=== PATIENT | male | born 1970 | race Caucasian/White ===

== ENCOUNTER 2018-01-29 13:02 | Emergency (ER) | payer OTHER ==
[~2018-01-29] VITALS: Ht 188 cm; Wt 114.3 kg
--- OUTSIDE RECORDS SUMMARY | 2018-01-29 13:05 | XMS REPORT | Clinical Summary ---
Author Author GINA [facility] Organization [facility] Address Unknown Phone Unavailable Care Team Providers Care Die Baker Name Role Phone Sharpless PCP Allergies No Known Allergies Medications End Date Status Medication Sig Dispensed Refills Start Date 08/12/2017 Discontinued tamsulosin (FLOMAX) 0.4 Take 0.4 mg 0 mg Cp24 24 hr capsule by mouth daily. 08/12/2017 Discontinued acetaminophen-codeine Take 1 tablet 30 tablet 0 (TYLENOL #3) 300-30 mg by mouth 8 per tablet every 4 (four) hours as needed for Pain for up to 10 days. Max Daily Amount: 6 tablets 08/12/2017 Discontinued docusate sodium (COLACE) Take 1 10 capsule 0 100 MG capsule capsule (100 8 mg total) by mouth 2 (two) times daily for 10 days. 08/12/2017 Discontinued ciprofloxacin HCl (CIPRO) Take 1 tablet 8 tablet 0 500 MG tablet (500 mg 8 total) by mouth 2 (two) times daily for 4 days. 08/16/2017 ciprofloxacin HCl (CIPRO) Take 1 tablet 8 tablet 0 500 MG tablet (500 mg 8 total) by mouth 2 (two) times daily for 4 days. 08/22/2017 acetaminophen-codeine Take 1 tablet 30 tablet 0 (TYLENOL #3) 300-30 mg by mouth 8 per tablet every 4 (four) hours as needed for Pain for up to 10 days. Max Daily Amount: 6 tablets 08/22/2017 docusate sodium (COLACE) Take 1 10 capsule 0 100 MG capsule capsule (100 8 mg total) by mouth 2 (two) times daily for 10 days. Active Problems Problem Noted Date S/P prostatectomy 08/12/2017 Prostate cancer 08/10/2017 Encounters Care Team Description Date Type Specialty Link, Grzegorz Fan MD ROBOTIC LAPAROSCOPY,PROSTATECTOMY W/ PELVIC LYMPH NODE DISSECTION 08/10/2017 Surgery Link, Grzegorz Fan MD 08/10/2017 [facility] General Internal Medicine - Encounter 08/12/2017 Link, Grzegorz Fan MD 07/25/2017 Hospital Cardiology Encounter Link, Grzegorz Fan MD 07/25/2017 Hospital Encounter Link, Grzegorz Fan MD 07/25/2017 Hospital Pre-Admission Testing Encounter Link, Grzegorz Fan MD 07/25/2017 Hospital Pre-Admission Testing Encounter Opal Lopes MD 07/25/2017 Anesthesia Event Link, Grzegorz Fan MD 07/25/2017 Outside Orders Autumn Ryder 07/19/2017 Orders Only Pre-Admission Testing after 01/28/2017 Social History Date Tobacco Use Types Packs/Day Years Used Never Smoker Smokeless Tobacco: Snuff Current User Tobacco Cessation: Ready to Quit: Yes; Counseling Given: Yes Comments: 1/2 can /day Alcohol Use Drinks/Week oz/Week Comments Yes 2 Cans of 1.2 beer Sex Assigned at Date Recorded Not on file Industry Job Start Date Occupation Not on file Not on file Not on file Travel End Travel History Travel Start No recent travel history available. Last Filed Vital Signs Time Taken Vital Sign Reading 08/12/2017 3:43 PM CDT Blood Pressure 171/93 08/12/2017 3:43 PM CDT Pulse 101 08/12/2017 3:43 PM CDT Temperature 37.8 C (100.1 F) 08/12/2017 3:43 PM CDT Respiratory Rate 20 08/12/2017 3:43 PM CDT Oxygen Saturation 96% - Inhaled Oxygen - Concentration 08/10/2017 5:24 AM CDT Weight 115.6 kg (254 lb 14.4 oz) 08/10/2017 5:24 AM CDT Height 188 cm (6' 2") 08/10/2017 5:24 AM CDT Body Mass Index 32.73 Plan of Treatment Not on file Procedures Comments Procedure Name Priority Date/Time Associated Diagnosis RHYTHM STRIP - SCAN 08/14/2017 2:11 PM CDT HEMOGLOBIN AND HEMATOCRIT Routine 08/12/2017 12:49 PM CDT HEMOGLOBIN AND HEMATOCRIT Routine 08/12/2017 4:53 AM CDT BASIC METABOLIC PANEL (7) Routine 08/12/2017 4:53 AM CDT HEMOGLOBIN AND HEMATOCRIT Routine 08/11/2017 5:25 AM CDT BASIC METABOLIC PANEL (7) Routine 08/11/2017 5:25 AM CDT HEMOGLOBIN AND HEMATOCRIT Routine 08/10/2017 12:49 PM CDT BASIC METABOLIC PANEL (7) Routine 08/10/2017 12:49 PM CDT TISSUE EXAM AP Routine 08/10/2017 11:56 AM CDT PROCEDURE W/ DAVINCI 08/10/2017 Prostate cancer (HCC) 7:30 AM CDT Special Needs (DAVINCI - XI NOT REQUESTED) ROBOTIC 08/10/2017 Prostate cancer (HCC) LAPAROSCOPY,PROSTATECTOMY 7:30 AM CDT W/ PELVIC LYMPH NODE DISSECTION Special Needs (DAVINCI - XI NOT REQUESTED) TRANSFUSION SERVICE 07/26/2017 REPORT - SCAN 5:44 PM CDT XR CHEST 2 VIEWS Routine 07/25/2017 11:14 AM CDT ECG 12-LEAD Routine 07/25/2017 10:55 AM CDT Procedure Note - Interface, External Ris In - 07/25/2017 11:05 AM CDT Ventricula r Rate 72 BPM Atrial Rate 72 BPM P-R Interval 134 ms QRS Duration 98 ms Q-T Interval 386 ms QTC Calculatio n(Bazett) 422 ms P Big Indian 37 degrees R Big Indian 6 degrees T Big Indian 120 degrees Normal sinus rhythm Possible Left atrial enlargemen t Left ventricula r hypertroph y T wave abnormalit y, consider lateral ischemia Abnormal ECG No previous ECGs available ECG 12-LEAD Routine 07/25/2017 10:55 AM CDT APTT Routine 07/25/2017 10:51 AM CDT PROTHROMBIN TIME/INR Routine 07/25/2017 10:51 AM CDT CBC W/PLT COUNT & AUTO Routine 07/25/2017 DIFFERENTIAL 10:50 AM CDT TYPE AND SCREEN, Routine 07/25/2017 AUTOMATED 10:50 AM CDT URINALYSIS W/ MICROSCOPIC Routine 07/25/2017 10:50 AM CDT CBC W/PLT COUNT & AUTO Routine 07/25/2017 DIFFERENTIAL 10:50 AM CDT BASIC METABOLIC PANEL (7) Routine 07/25/2017 10:50 AM CDT URINE CULTURE Routine 07/25/2017 10:50 AM CDT after 01/28/2017 Results * RHYTHM STRIP - SCAN (08/14/2017 2:11 PM CDT) Narrative Performed At * Hemoglobin and hematocrit (08/12/2017 12:49 PM CDT) Only the most recent of 4 results within the time period is included. Hemoglobin 10.9 (L) 13.7 - 17.5 GM/DL [facility] Hematocrit 32.1 (L) 40.1 - 51.0 % [facility] Specimen Blood - Arm, Right Performing Organization Address City/State/Zipcode Phone Number [facility] [address] [place] [address] MEDICAL [facility]ENTER * Basic Metabolic Panel - In AM (08/12/2017 4:53 AM CDT) Only the most recent of 4 results within the time period is included. Sodium 139 136 - 145 meq/L [facility] Potassium 3.2 (L) 3.5 - 5.1 meq/L [facility] Chloride 103 98 - 107 meq/L [facility] CO2 26 22 - 29 meq/L [facility] BUN 10 7 - 21 mg/dL [facility] Creatinine 1.63 (H) 0.57 - 1.25 mg/dL [facility] Glucose 107 (H) 70 - 105 mg/dL [facility] Calcium 8.6 8.4 - 10.2 mg/dL [facility] EGFR 46Comment: ESTIMATED GFR IS mL/min/1.73 sq m [facility] NOT ACCURATE CREATININE [facility] CLEARANCE IN PREDICTING GLOMERULAR FILTRATION RATE. ESTIMATED GFR IS NOT APPLICABLE FOR DIALYSIS PATIENTS. Specimen Blood - Arm, Right Performing Organization Address City/State/Zipcode Phone Number [facility] [address], [place] [phone] MEDICAL [facility]ENTER * Tissue Exam (08/10/2017 11:56 AM CDT) Case Report Surgical Pathology [facility] Report [facility] Case: [id number] Authorizing Provider:Grzegorz Cabezas MD Collected: 08/10/2017 1158 Ordering Location: [facility] PERIOPERATIVE Received: 08/10/2017 1221 SERVICES Pathologist: Jay Moreno MD Specimens: A) - Prostate, Radical Prostatectomy B) - Lymph Node, Bilateral Pelvic Lymph Node DIAGNOSIS A. PROSTATE, RADICAL ROBOTIC [facility] ASSISTED PROSTATECTOMY: [facility] - ADENOCARCINOMA, CATHLEEN 3+4=7, CONFINED TO PROSTATE, SURGICAL MARGINS POSITIVE SEMINAL VESICLES, RADICAL ROBOTIC ASSISTED PROSTATECTOMY: - NEGATIVE FOR MALIGNANCY B. LYMPH NODES, BILATERAL PELVIC, DISSECTION: - FIFTEEN BENIGN LYMPH NODES (0/15) Signing Pathologist Direct Phone Line: [phone] COMMENT Sections show bilateral [facility] peripheral and transition zone [facility] cancers. The peripheral zone cancer on the left side is the highest grade. The transition zone cancers are low grade (Cathleen 2+3=5) and the right peripheral zone cancer is Cathleen 3+3=6. The tumor involves the bladder neck surgical margin over a linear distance of 6 mm and is not associated with extraprostatic extension at the site of the surgical margin. The maximum Muldraugh pattern at the surgical margin is "3". Excellent preservation of the neurovascular bundles is noted from examination of the surgical specimen. SYNOPTIC REPORT PROSTATE GLAND: Radical [facility] Prostatectomy(Prostate Res [facility] - All Specimens) SPECIMEN Procedure:Radical prostatectomy Prostate Size: Prostate Weight (g):30 g Prostate Greatest Dimension in Centimeters (cm):4.2 Centimeters (cm) Additional Dimension in Centimeters (cm):3.2 Centimeters (cm) Additional Dimension in Centimeters (cm):2.5 Centimeters (cm) TUMOR Histologic Type:Acinar adenocarcinoma Histologic Grade: Muldraugh Pattern: Primary Muldraugh Pattern:Pattern 3 Secondary Cathleen Pattern:Pattern 4 Tertiary Cathleen Pattern:Not applicable Total Muldraugh Score:7 Grade Group:2 Intraductal Carcinoma (IDC):Not identified Tumor Extent: Tumor Quantitation:Estimated percentage of prostate involved by tumor: 12 % Tumor Quantitation:Tumor size Greatest Dimension in Millimeters (mm):18 Millimeters (mm) Extraprostatic Extension (EPE):Not identified Urinary Bladder Neck Invasion:Not identified Seminal Vesicle Invasion:Not identified Accessory Findings: Treatment Effect:No known presurgical therapy Lymphovascular Invasion:Not Identified Perineural Invasion:Present MARGINS Margins:Involved by invasive carcinoma :Non-limited (>=3 mm) Linear Length of Positive Margin(s) in Millimeters (mm):6 Millimeters (mm) Focality:Unifocal Location of Positive Margin(s):Left bladder neck Margin Positivity in Area of Extraprostatic Extension (EPE):Not identified Cathleen Pattern at Positive Margin(s):Pattern 3 LYMPH NODES Number of Lymph Nodes Involved:0 Number of Lymph Nodes Examined:15 PATHOLOGIC STAGE CLASSIFICATION (pTNM, AJCC 8th Edition) Primary Tumor (pT):pT2 Regional Lymph Nodes (pN):pN0 ADDITIONAL FINDINGS Additional Pathologic Findings:None identified SPECIAL STUDIES Ancillary Studies:Not performed CPT Code(s) 40521; 12859 [facility] CLINICAL HISTORY Prostate cancer [facility] SPECIMEN SOURCE A. Radical prostatectomy; B. [facility] Bilateral pelvic lymph node [facility] GROSS DESCRIPTION The specimen is received in [facility] two containers of formalin [facility] both labeled with the patient's information. Part A is a radical prostatectomy specimen in formalin with the patient's name, Mandeep Massey, is a prostate with bilateral seminal vesicles and vas deferentia. The prostate weighs 30.0 gm and measures 3.2 cm apex to base, 4.2 cm transversely and 2.5 cm anterior to posterior. The right and left seminal vesicles measure 3.0 x 1.0 x 0.5 cm and 3.2 x 1.0 x 0.5 cm respectively. The right and left vasa deferentia measure 6.0 cm and 5.0 cm in length respectively and 0.5 cm in diameter. The capsular surface of the prostate is purple-linder to red, dusky, and focally ragged. Ink code: Right-black, left-blue. The prostate is serially sectioned from apex to base in its entirety. The total number of slices including the seminal vesicles and vas deferentia are 10 slice. Sections reveal pink-linder to allen-white, homogeneous, focally nodular prostatic parenchyma throughout. No discrete masses are identified. The prostate gland is entirely submitted. Sectioning of the seminal vesicles reveals a pink-linder unremarkable cut surface. Section code: Apical margins are submitted in cassette A1, bladder neck margins are submitted in cassette A2, and the prostate slices are submitted in cassetteS A3 through A8. Right and left seminal vesicles at the base of the prostate are submitted in cassette A9, seminal vesicle tips along with vas deferentia are submitted in cassette A10. SDH/ew MICROSCOPIC DESCRIPTION A-B. Preformed. [facility] Specimen Tissue - Lymph Node Performing Organization Address City/State/Zipcode Phone Number [facility] [address] [place] [address] [facility] * TRANSFUSION SERVICE REPORT - SCAN (07/26/2017 5:44 PM CDT) Narrative Performed At * XR chest 2 views (07/25/2017 11:14 AM CDT) Narrative Performed At FINAL REPORT [facility] HISTORY : sx. Comparison: None Comment: Two views of the chest, PA and lateral, were obtained. The cardiac silhouette is within normal limits. There is no pleural effusion, pneumothorax or infiltrate. No lytic or blastic abnormalities. There are mild multilevel degenerative disc changes of the thoracic spine. There is a slightly tortuous/ectatic thoracic aorta. Impression: 1. Slightly tortuous/ectatic thoracic aorta. 2. Mild multilevel degenerative disc changes of the thoracic spine. Signed: Anusha Barron MD Report Verified Date/Time:07/25/2017 11:58:01 Reading Location: [address] Radiology Reading Room Procedure Note Interface, External Ris In - 07/25/2017 12:00 PM CDT FINAL REPORT HISTORY : sx. Comparison: None Comment: Two views of the chest, PA and lateral, were obtained. The cardiac silhouette is within normal limits. There is no pleural effusion, pneumothorax or infiltrate. No lytic or blastic abnormalities. There are mild multilevel degenerative disc changes of the thoracic spine. There is a slightly tortuous/ectatic thoracic aorta. Impression: 1. Slightly tortuous/ectatic thoracic aorta. 2. Mild multilevel degenerative disc changes of the thoracic spine. Signed: Anusha Barron MD Report Verified Date/Time: 07/25/2017 11:58:01 Reading Location: [address] Radiology Reading Room Performing Organization Address City/[facility] Phone Number GE RIS * Electrocardiogram, 12-lead (07/25/2017 10:55 AM CDT) Narrative Performed At Ventricular Rate 72 BPM GE MUSE Atrial Rate 72 BPM P-R Interval 134 ms QRS Duration 98 ms Q-T Interval 386 ms QTC Calculation(Bazett) 422 ms P Big Indian 37 degrees R Big Indian 6 degrees T Big Indian 120 degrees Normal sinus rhythm Possible Left atrial enlargement Left ventricular hypertrophy T wave abnormality, consider lateral ischemia Abnormal ECG No previous ECGs available Confirmed by Arabella Paz Alireaz ([id number]) on 07/25/2017 10:20:53 PM Procedure Note Interface, External Ris In - 07/25/2017 10:21 PM CDT Ventricular Rate 72 BPM Atrial Rate 72 BPM P-R Interval 134 ms QRS Duration 98 ms Q-T Interval 386 ms QTC Calculation(Bazett) 422 ms P Big Indian 37 degrees R Big Indian 6 degrees T Big Indian 120 degrees Normal sinus rhythm Possible Left atrial enlargement Left ventricular hypertrophy T wave abnormality, consider lateral ischemia Abnormal ECG No previous ECGs available Confirmed by Arabella Paz Alireaz ([id number]) on 07/25/2017 10:20:53 PM Performing Organization Address [facility] Phone Number NEURONIX MUSE * aPTT (07/25/2017 10:51 AM CDT) PTT 29.2 22.5 - 36.0 seconds [facility] Specimen Blood Performing Organization Address City/State/Zipcode Phone Number [address] * Prothrombin time/INR (07/25/2017 10:51 AM CDT) Protime 14.4 11.7 - 14.7 seconds [facility] INR 1.1 <=5.9 [facility] Specimen Blood Narrative Performed At RECOMMENDED COUMADIN/WARFARIN INR THERAPY RANGES [facility] STANDARD DOSE: 2.0 - 3.0 Includes: PROPHYLAXIS for venous thrombosis, [facility] systemic embolization; TREATMENT for venous thrombosis and/or pulmonary embolus. HIGH RISK: Target INR is 2.5-3.5 for patients with mechanical heart valves. Performing Organization Address [facility] Phone Number [address] * Type and screen, automated (07/25/2017 10:50 AM CDT) ABO/RH AUTOMATED (BEAKER) O POSITIVE [facility] Ab Scrn NEGATIVE [facility] Specimen Blood Performing Organization Address City/[facility]/Zipcode Phone Number [place] [phone] [place] [address] * CBC with platelet count + automated diff (07/25/2017 10:50 AM CDT) WBC 9.1 3.5 - 10.5 K/L [facility] RBC 4.75 4.63 - 6.08 M/L [facility] Hemoglobin 13.9 13.7 - 17.5 GM/DL [facility] Hematocrit 41.6 40.1 - 51.0 % [facility] MCV 87.6 79.0 - 92.2 fL [facility] MCH 29.3 25.7 - 32.2 pg [facility] MCHC 33.4 32.3 - 36.5 GM/DL [facility] RDW 13.1 11.6 - 14.4 % [facility] Platelets 326 150 - 450 K/CU MM [facility] MPV 9.6 9.4 - 12.4 fL [facility] nRBC 0 0 - 0 /100 WBC [facility] % Neutros 63 % [facility] % Lymphs 27 % [facility] % Monos 9 % [facility] % Eos 1 % [facility] % Baso 0 % [facility] # Neutros 5.68 (H) 1.78 - 5.38 K/L [facility] # Lymphs 2.40 1.32 - 3.57 K/L [facility] # Monos 0.81 0.30 - 0.82 K/L [facility] # Eos 0.09 0.04 - 0.54 K/L [facility] # Baso 0.04 0.01 - 0.08 K/L [facility] Immature 0 0 - 1 % [facility] Granulocytes-[facility] Specimen Blood Performing Organization Address City/State/Zipcode Phone Number [facility] [address] [place] [address] MEDICAL CENTER * Urinalysis w/ Microscopic (07/25/2017 10:50 AM CDT) Color, UA Light Yellow [facility] Clarity, UA Clear [facility] Specific Velpen, UA 1.005 1.001 - 1.035 [facility] pH, UA 5.5 5.0 - 8.0 [facility] Protein, UA Negative Negative [facility] Glucose, UA Negative Negative [facility] Ketones, UA Negative Negative [facility] Bilirubin, UA Negative Negative [facility] Blood, UA Negative Negative [facility] Nitrite, UA Negative Negative [facility] Leukocytes, UA Trace (A) Negative [facility] Urobilinogen, UA 0.2 0.2 - 1.0 mg/dL [facility] RBC, UA <1 /HPF [facility] WBC, UA 3 /HPF [facility] Squam Epithel, UA <1 /HPF [facility] Specimen Source [facility] Specimen Urine Performing Organization Address City/[facility] Cent[facility]ode Phone Number [address] [address] [facility] * Urine culture (07/25/2017 10:50 AM CDT) Result No growth [facility] Specimen Urine Performing Organization Address [facility] Phone Number [facility] [address] [place] [address] [facility] after 01/28/2017 Insurance Payer Benefit Subscriber ID Type Phone Address Plan / Group ON LICENSE OF [facility] xxxxxxxxxxxx HMO/POS [phone] [facility] CHOICE EXCHANGE Advance Directives For more information, please contact: [address] [address] Date Inactivated Comments Code Status Date Activated 08/12/2017 8:26 PM Full Code 08/10/2017 4:00 PM This code status was determined by: Patient
--- OUTSIDE RECORDS SUMMARY | 2018-01-29 13:05 | XMS REPORT ---
Author Author [facility] Address Unknown Phone Unavailable Care Team Providers Care Relief Man Name Role Phone BENEDICT CABEZAS Unavailable Unavailable Problems This patient has no known problems. Allergies, Adverse Reactions, Alerts This patient has no known allergies or adverse reactions. Medications This patient has no known medications. Results Test Description Test Time Test Comments Text Results Atomic Results Result Comments TISSUE EXAM 2017-08-23 13:47:00 Surgical Pathology Report Case: [id number] Authorizing Provider: Grzegorz Cabezas MD Collected: 08/10/2017 1156 Ord ering Location: [facility] PERIOPERATIVE Received: 08/10/2017 1221 SERVICES Pathologist: Jay Moreno MD Specimens: A) - Prostate, Radical Prostatectomy B) - Lymph Node, Bilateral Pelvic Lymph Node A. 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 LYMPH NODES, BILATERAL PELVIC, DISSECTION: - FIFTEEN BENIGN LYMPH NODES (0/15) Signing Pathologist Direct Phone Line: [phone] signed by Jay Moreno MD on 08/23/2017 at 1:47 PMPreliminary result electronically signed by Jay Moreno MD on 08/14/2017 at 3:54 PMSections show bilateral peripheral and transition zone cancers. The peripheral zone cancer on the left side is the highest grade. The transition zone cancers are low grade (Cathleen 2+3=5) and the right peripheral zone cancer is Malvern 3+3=6. The tumor involves the bladder neck surgical ma rgin over a linear distance of 6 mm and is not associated with extraprostatic extension at the site of the surgical margin. The maximum Malvern pattern at the surgical margin is "3". Excellent preservation of the neurovascular bundles is noted from examination of the surgical specimen.PROSTATE GLAND: Radical Prostatectomy (Prostate Res - All Specimens)SPECIMEN Procedure: Radical prostatectomy Prostate Size: Prostate Weight (g): 30 g Prostate Greatest Dimension in Centimeters (cm): 4.2 Centimeters (cm) Additional Dimension in Centimeters (cm): 3.2 Centimeters (cm) Additional Dimension in Centimeters (cm): 2.5 Centimeters (cm)TUMOR Histologic Type: Acinar adenocarcinoma Histologic Grade: Cathleen Pattern: Primary Malvern Pattern: Pattern 3 Secondary Malvern Pattern: Pattern 4 Tertiary Cathleen Pattern: Not applicable Total Malvern Score: 7 Grade Group: 2 Intraductal Carcinoma (IDC): Not identified Tumor Extent: Tumor Quantitation: Estimated percentage of prostate involved by tumor: 12 % Tumor Quantitation: Tumor size Greatest Dimension in Millimeters (mm): 18 Millimeters (mm) Extraprostatic Extension (EPE): Not identified Urinary Bladder Neck Invasion: Not identified Seminal Vesicle Invasion: Not identified Accessory Findings: Treatment Effect: No known presurgical therapy Lymphovascular Invasion: Not Identified Perineural Invasion: Present MARGINS Margins: Involved by invasive carcinoma : Non- limited (>=3 mm) Linear Length of Positive Margin(s) in Millimeters (mm): 6 Millimeters (mm) Focality: Unifocal Location of Positive Margin(s): Left bladder neck Margin Positivity in Area of Extraprostatic Extension (EPE): Not identified Cathleen Pattern at Positive Margin(s): Pattern 3 LYMPH NODES Number of Lymph Nodes Involved: 0 Number of Lymph Nodes Examined: 15 PATHOLOGIC STAGE CLASSIFICATION (pTNM, AJCC 8th Edition) Primary Tumor (pT): pT2 Regional Lymph Nodes (pN): pN0 ADDITIONAL FINDINGS Additional Pathologic Findings: None identified SPECIAL STUDIES Ancillary Studies: Not performed [id number]; [id number] cancerA. Radical prostatectomy; B. Bilateral pelvic lymph nodeThe specimen is received in two containers of formalin both labeled with the patient's information.Part A is a radical prostatectomy specimen in formalin with the patient's name, Mandeep Massey, is a prostate with bilateral seminal vesicles and vas deferentia.The prostate weighs 30.0 gm and measures 3.2 [...] vas deferentia are submitted in cassette A10. SDH/Elicia-B. Preformed. HEMOGLOBIN AND HEMATOCRIT 2017-08-12 13:02:00 HEMOGLOBIN (BEAKER) (test iydu=311) 10.9 GM/DL 13.7-17.5 HEMATOCRIT (BEAKER) (test vebh=646) 32.1 % 40.1-51.0 BASIC METABOLIC [id number] 06:42:00* Test Item Value Reference Range Comments SODIUM (BEAKER) (test yncx=177) 139 meq/L 136-145 POTASSIUM (BEAKER) (test bukj=158) 3.2 meq/L 3.5-5.1 CHLORIDE (BEAKER) (test bigj=879) 103 meq/L 98-107 CO2 (BEAKER) (test rxmc=390) 26 meq/L 22-29 BLOOD UREA NITROGEN (BEAKER) (test hjkn=403) 10 mg/dL 7-21 CREATININE (BEAKER) (test urio=701) 1.63 mg/dL 0.57-1.25 GLUCOSE RANDOM (BEAKER) (test ouzy=613) 107 mg/dL 70-105 CALCIUM (BEAKER) (test ephq=806) 8.6 mg/dL 8.4-10.2 EGFR (BEAKER) (test prkm=8830) 46 mL/min/1.73 sq m ESTIMATED GFR IS NOT ACCURATE CREATININE CLEARANCE IN PREDICTING GLOMERULAR FILTRATION RATE. ESTIMATED GFR IS NOT APPLICABLE FOR DIALYSIS PATIENTS. HEMOGLOBIN AND [id number] 06:18:00* Test Item Value Reference Range Comments HEMOGLOBIN (BEAKER) (test fkdh=288) 10.3 GM/DL 13.7-17.5 HEMATOCRIT (BEAKER) (test ncan=752) 31.5 % 40.1-51.0 BASIC METABOLIC [id number] 06:30:00* Test Item Value Reference Range Comments SODIUM (BEAKER) (test flaf=679) 138 meq/L 136-145 POTASSIUM (BEAKER) (test gmhv=064) 3.7 meq/L 3.5-5.1 CHLORIDE (BEAKER) (test lwjh=505) 105 meq/L 98-107 CO2 (BEAKER) (test cfmn=502) 27 meq/L 22-29 BLOOD UREA NITROGEN (BEAKER) (test qyow=944) 16 mg/dL 7-21 CREATININE (BEAKER) (test zgay=988) 1.90 mg/dL 0.57-1.25 GLUCOSE RANDOM (BEAKER) (test bhwd=305) 127 mg/dL 70-105 CALCIUM (BEAKER) (test xbxm=983) 8.3 mg/dL 8.4-10.2 EGFR (BEAKER) (test aecn=7525) 38 mL/min/1.73 sq m ESTIMATED GFR IS NOT ACCURATE CREATININE CLEARANCE IN PREDICTING GLOMERULAR FILTRATION RATE. ESTIMATED GFR IS NOT APPLICABLE FOR DIALYSIS PATIENTS. HEMOGLOBIN AND [id number] 05:51:00* Test Item Value Reference Range Comments HEMOGLOBIN (BEAKER) (test pzcj=143) 11.3 GM/DL 13.7-17.5 HEMATOCRIT (BEAKER) (test imnx=916) 34.3 % 40.1-51.0 BASIC METABOLIC [id number] 14:11:00* Test Item Value Reference Range Comments SODIUM (BEAKER) (test ulfl=797) 142 meq/L 136-145 POTASSIUM (BEAKER) (test icip=985) 3.9 meq/L 3.5-5.1 CHLORIDE (BEAKER) (test dtcw=686) 111 meq/L 98-107 CO2 (BEAKER) (test tqmt=857) 21 meq/L 22-29 BLOOD UREA NITROGEN (BEAKER) (test syrv=154) 21 mg/dL 7-21 CREATININE (BEAKER) (test ybwc=135) 1.98 mg/dL 0.57-1.25 GLUCOSE RANDOM (BEAKER) (test ncim=091) 123 mg/dL 70-105 CALCIUM (BEAKER) (test lydw=370) 8.3 mg/dL 8.4-10.2 EGFR (BEAKER) (test bkzf=6309) 37 mL/min/1.73 sq m ESTIMATED GFR IS NOT ACCURATE CREATININE CLEARANCE IN PREDICTING GLOMERULAR FILTRATION RATE. ESTIMATED GFR IS NOT APPLICABLE FOR DIALYSIS PATIENTS. HEMOGLOBIN AND [id number] 13:45:00* Test Item Value Reference Range Comments HEMOGLOBIN (BEAKER) (test hova=554) 12.5 GM/DL 13.7-17.5 HEMATOCRIT (BEAKER) (test kcqq=784) 38.2 % 40.1-51.0 URINE [id number] 15:11:00* Test Item Value Reference Range Comments CULTURE (BEAKER) (test qgmq=7113) No growth RAD, CHEST, 2 [id number] 11:58:00Reason for exam:->sxShould this be performed at the bedside?->NoFINAL REPORT HISTORY : sx. Comparison: None Comment: [...] of the thoracic spine. Signed: Anusha Barron MDReport Verified Date/Time: 07/25/2017 11:58:01 Reading Location: [address] Radiology Reading Room C METABOLIC PANEL 2017-07-25 11:46:00* Test Item Value Reference Range Comments SODIUM (BEAKER) (test skjp=310) 140 meq/L 136-145 POTASSIUM (BEAKER) (test edrq=070) 3.4 meq/L 3.5-5.1 CHLORIDE (BEAKER) (test assg=292) 105 meq/L 98-107 CO2 (BEAKER) (test euch=873) 24 meq/L 22-29 BLOOD UREA NITROGEN (BEAKER) (test uysb=528) 24 mg/dL 7-21 CREATININE (BEAKER) (test hvug=558) 2.12 mg/dL 0.57-1.25 GLUCOSE RANDOM (BEAKER) (test ixij=277) 97 mg/dL 70-105 CALCIUM (BEAKER) (test bdul=203) 9.8 mg/dL 8.4-10.2 EGFR (BEAKER) (test wkdn=4250) 34 mL/min/1.73 sq m ESTIMATED GFR IS NOT ACCURATE CREATININE CLEARANCE IN PREDICTING GLOMERULAR FILTRATION RATE. ESTIMATED GFR IS NOT APPLICABLE FOR DIALYSIS PATIENTS. URINALYSIS W/ [id number] 11:43:00* Test Item Value Reference Range Comments COLOR (BEAKER) (test flvg=954) Light Yellow CLARITY (BEAKER) (test gstx=078) Clear SPECIFIC GRAVITY UA (BEAKER) (test hwzi=793) 1.005 1.001-1.035 PH UA (BEAKER) (test szvb=415) 5.5 5.0-8.0 PROTEIN UA (BEAKER) (test swue=458) Negative Negative GLUCOSE UA (BEAKER) (test scda=800) Negative Negative KETONES UA (BEAKER) (test ekrp=465) Negative Negative BILIRUBIN UA (BEAKER) (test bwwn=926) Negative Negative BLOOD UA (BEAKER) (test emyo=657) Negative Negative NITRITE UA (BEAKER) (test udhl=314) Negative Negative LEUKOCYTE ESTERASE UA (BEAKER) (test sjgx=967) Trace Negative UROBILINOGEN UA (BEAKER) (test zsvp=146) 0.2 mg/dL 0.2-1.0 RBC UA (BEAKER) (test aeew=721) < /HPF WBC UA (BEAKER) (test dybr=978) 3 /HPF SQUAMOUS EPITHELIAL (BEAKER) (test jjec=497) < /HPF SOURCE(BEAKER) (test xiqc=8980) PROTHROMBIN TIME/[id number] 11:30:00* Test Item Value Reference Range Comments PROTIME (BEAKER) (test zujy=126) 14.4 seconds 11.7-14.7 INR (BEAKER) (test lmgg=456) 1.1 <=5.9 RECOMMENDED COUMADIN/WARFARIN INR THERAPY RANGESSTANDARD DOSE: 2.0 - 3.0 Inclu estefany: PROPHYLAXIS for venous thrombosis, systemic embolization; TREATMENT for keith ous thrombosis and/or pulmonary embolus.HIGH RISK: Target INR is 2.5-3.5 for pat ients with mechanical heart valves.[id number] 11:30:00* Test Item Value Reference Range Comments PARTIAL THROMBOPLASTIN TIME (BEAKER) (test mcpa=535) 29.2 seconds 22.5-36.0 CBC W/PLT COUNT & AUTO [id number] 11:22:00* Test Item Value Reference Range Comments WHITE BLOOD CELL COUNT (BEAKER) (test bpwq=530) 9.1 K/ L 3.5-10.5 RED BLOOD CELL COUNT (BEAKER) (test slpw=593) 4.75 M/ L 4.63-6.08 HEMOGLOBIN (BEAKER) (test gbhi=941) 13.9 GM/DL 13.7-17.5 HEMATOCRIT (BEAKER) (test uyld=848) 41.6 % 40.1-51.0 MEAN CORPUSCULAR VOLUME (BEAKER) (test hqga=853) 87.6 fL 79.0-92.2 MEAN CORPUSCULAR HEMOGLOBIN (BEAKER) (test ozhp=010) 29.3 pg 25.7-32.2 MEAN CORPUSCULAR HEMOGLOBIN CONC (BEAKER) (test qmxk=857) 33.4 GM/DL 32.3-36.5 RED CELL DISTRIBUTION WIDTH (BEAKER) (test yyrh=827) 13.1 % 11.6-14.4 PLATELET COUNT (BEAKER) (test idgb=099) 326 K/CU MM 150-450 MEAN PLATELET VOLUME (BEAKER) (test trto=795) 9.6 fL 9.4-12.4 NUCLEATED RED BLOOD CELLS (BEAKER) (test nkdh=865) 0 /100 WBC 0-0 NEUTROPHILS RELATIVE PERCENT (BEAKER) (test cmru=936) 63 % LYMPHOCYTES RELATIVE PERCENT (BEAKER) (test ktqz=687) 27 % MONOCYTES RELATIVE PERCENT (BEAKER) (test ncxp=962) 9 % EOSINOPHILS RELATIVE PERCENT (BEAKER) (test awsd=832) 1 % BASOPHILS RELATIVE PERCENT (BEAKER) (test hhtx=431) 0 % NEUTROPHILS ABSOLUTE COUNT (BEAKER) (test fgrg=763) 5.68 K/ L 1.78-5.38 LYMPHOCYTES ABSOLUTE COUNT (BEAKER) (test yzqf=493) 2.40 K/ L 1.32-3.57 MONOCYTES ABSOLUTE COUNT (BEAKER) (test vfga=928) 0.81 K/ L 0.30-0.82 EOSINOPHILS ABSOLUTE COUNT (BEAKER) (test glam=376) 0.09 K/ L 0.04-0.54 BASOPHILS ABSOLUTE COUNT (BEAKER) (test keiy=527) 0.04 K/ L 0.01-0.08 IMMATURE GRANULOCYTES-RELATIVE PERCENT (BEAKER) (test snfe=3684) 0 % 0-1
[2018-01-29] MEDS ORDERED: ACETAMINOPHEN 325 MG TAB PO STA (13:15)
[2018-01-29] MEDS ORDERED: SODIUM CHLORIDE 0.9% 1000ML 1,000 ML IV STA (13:22)
[2018-01-29] MEDS ORDERED: ACETAMINOPHEN 1000 MG/100 ML IV STA ×2 (13:22→21:20)
[2018-01-29 13:40] LABS: BASOPHILS % 0.2 % (0.0-1.0); EOSINOPHILS % 0.1 % (0.0-6.0); HEMATOCRIT 40.9 % (38.2-49.6); HEMOGLOBIN 13.5 g/dL (14.0-18.0); LYMPHOCYTES # (AUTO) 0.9 (1.0-3.2); MEAN CORPUSCULAR HEMOGLOBIN 28.7 pg (28-32); MONOCYTES # (AUTO) 1.6 (0.2-0.8); MONOCYTES % 9.5 % (4.4-11.3); NEUTROPHILS # (AUTO) 14.5 (2.1-6.9); NEUTROPHILS % 84.3 % (38.7-80.0); PLATELET COUNT 339 x10e3/uL (140-360); RED CELL DISTRIBUTION WIDTH 15.4 % (11.7-14.4)
[2018-01-29] MEDS ORDERED: DIATRIZOATE MEGL/DIATRIZOA SOD 30 ML BTL PO ONE (13:51)
[2018-01-29 13:52] LABS: BILIRUBIN,URINE NEGATIVE (NEGATIVE); CLARITY,URINE SL CLOUDY (CLEAR); COLOR,URINE YELLOW (YELLOW); KETONES,URINE NEGATIVE (NEGATIVE); LEUKOCYTE ESTERASE ,URINE NEGATIVE (NEGATIVE); NITRITE,URINE NEGATIVE (NEGATIVE); PROTEIN,URINE DIPSTICK 1+ (NEGATIVE); URINE UROBILINOGEN 1 mg/dL (0.2 - 1)
[2018-01-29 13:53] LABS: INR 1.04; PROTHROMBIN TIME 14.5 seconds (11.9-14.5)
[2018-01-29 13:54] LABS: PARTIAL THROMBOPLASTIN TIME 43.2 seconds (23.8-35.5)
[2018-01-29 13:56] LABS: ALBUMIN 3.1 g/dL (3.5-5.0); ALBUMIN/GLOBULIN RATIO 0.7 (0.8-2.0); ANION GAP 13.7 mmol/L (8-16); CALCIUM 9.9 mg/dL (8.4-10.2); CREATININE, SERUM 1.41 mg/dL (0.72-1.25); POTASSIUM 3.7 mmol/L (3.5-5.1)
[2018-01-29 14:12] LABS: CREATINE KINASE 35 IU/L (30-200); MAGNESIUM 1.8 MG/DL (1.3-2.1)
[2018-01-29 14:19] LABS: BACTERIA,URINE RARE /HPF; RBC,URINE 0-5 /HPF (0-5)
[2018-01-29] MEDS ORDERED: SODIUM CHLORIDE 0.9% 50ML 50 ML ONE (16:07)
[2018-01-29] MEDS ORDERED: IOPAMIDOL 370 MG/ML 200 ML INFUS..BTL INJ ONE (16:08)
--- NOTE | 2018-01-29 16:25 | Diagnostic Imaging Report ---
Frontal and lateral views of the chest. HISTORY: Sepsis, fever COMPARISON: None available. DISCUSSION: Lungs: Low lung volumes result in bibasilar vascular crowding, accentuation of the pulmonary interstitial markings, central pulmonary vasculature, and the cardiac silhouette. Allowing for these limitations, the findings are as follows: No evidence of a consolidative pneumonia or pulmonary alveolar edema. Pleura: No pleural effusion or pneumothorax. Heart and mediastinum: The cardiomediastinal silhouette appears unremarkable. Mildly ectatic appearance of the thoracic aorta. Bones: No acute osseous lesion. IMPRESSION: No acute radiographic abnormality. Specifically, no pneumonia. Signed by: Dr. Darwin Borrego D.O., M.M.M. on 01/29/2018 4:21 PM
--- NOTE | 2018-01-29 17:24 | Diagnostic Imaging Report ---
EXAM: CT of the abdomen and pelvis WITH contrast HISTORY: FEVER, LLQ ABD PAIN COMPARISON: None. TECHNIQUE: The abdomen and pelvis were scanned utilizing a multidetector helical scanner. Coronal and sagittal reformats are provided. PROTOCOL: Routine IV CONTRAST: 100 cc of Isovue-370. ORAL CONTRAST: Dilute Gastrografin RADIATION DOSE: Total DLP: 921.02 mGy*cm Estimated effective dose: (DLP x 0.015 x size factor) Dose modulation, iterative reconstruction, and/or weight based adjustment of the mA/kV was utilized to reduce the radiation dose to as low as reasonably achievable. COMPLICATIONS: None FINDINGS: LOWER THORAX: Unremarkable. HEPATOBILIARY: Diffusely decreased attenuation of the liver relative to the spleen. No focal hepatic lesions. No biliary ductal dilatation. The gallbladder is unremarkable. SPLEEN: Mild hepatomegaly, 15 cm. PANCREAS: No focal masses or ductal dilatation. ADRENALS: No discrete adrenal nodule. KIDNEYS/URETERS: No hydronephrosis, stones, or solid mass lesions. Mild distention of both ureters. PELVIC ORGANS/BLADDER: Diffusely thickened appearance of the urinary bladder wall, likely accentuated by suboptimal distention, and displacement towards the right. Contiguous with the bladder, a multilobulated 7.9 cm (AP) x 8.9 cm (ML) x 6 cm (CC) collection with central fluid density and a thick mildly enhancing rim and prominent surrounding fat stranding. On sagittal image 95, subtle calcific density within the wall. There is no adjacent bowel. The adjacent unopacified left external iliac vein appears mildly displaced and decompressed. PERITONEUM / RETROPERITONEUM: No free air or fluid. Left pelvic fat stranding. LYMPH NODES: Nonspecific retroperitoneal lymph nodes. VESSELS: Unremarkable. GI TRACT: No distention or wall thickening identified. The appendix is normal. BONES: No aggressive osseous lesion or acute fracture. Moderate degenerative disc changes at L5-S1. SOFT TISSUES: Unremarkable. IMPRESSION: 1. 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 An alternative consideration is an abscess, but there is no definitive source. 2. Hepatic steatosis. 3. Mild splenomegaly. Signed by: Dr. Darwin Borrego D.O., M.M.M. on 01/29/2018 5:20 PM
[2018-01-29] MEDS ORDERED: METRONIDAZOLE 500MG/NS 100ML 100 ML IV SCH (18:00)
[2018-01-29] MEDS ORDERED: PIPER-TAZ 3.375 GM 50 ML IV SCH (18:00)
[2018-01-29] MEDS ORDERED: VANCOMYCIN 1GM/NS 250 ML 250 ML IV STA (18:25)
[2018-01-29] MEDS ORDERED: SODIUM CHLORIDE 0.9% 1000ML 1,000 ML IV SCH (19:45)
[2018-01-29] MEDS ORDERED: ACETAMINOPHEN 1000 MG/100 ML 100 ML IV ONE (20:05)
[2018-01-29 22:06] VITALS: BP 134/83
== END 2018-01-29 22:14 | disposition other institution (70) ==
LOC: ER 13:02
DX: R50.9 Fever, unspecified (principal); L02.211 Cutaneous abscess of abdominal wall; Z85.46 Personal history of malignant neoplasm of prostate
CPT/HCPCS: 36415; 71046; 74177; 80053; 81001; 82550; 82553; 83605; 83735; 84484; 85025; 85610; 85730; 87040; 87086; 87400; 93005; 99284; J0131; J2543; J3370; J7030; Q9663; Q9967